=== PATIENT | male | born 2000 | race Caucasian/White ===

== ENCOUNTER 2025-04-03 12:05 | Emergency (ER) | payer SELFPAY ==
[~2025-04-03] VITALS: Ht 162.6 cm; Wt 73.0 kg
[2025-04-03 12:09] VITALS: O2SAT 98
[2025-04-03 12:35] LABS: BASOPHILS % 0.5 % (0.0-2.0); EOSINOPHILS % 0.2 % (0.0-5.0); HEMATOCRIT. 42.7 % (42.0-52.0); HEMOGLOBIN. 14.6 g/dL (14.0-18.0); LYMPHOCYTES % 23.0 % (20.0-50.0); MEAN PLATELET VOLUME 7.7 fl (7.4-10.4); MONOCYTES % 9.2 % (2.0-8.0); NEUTROPHILS % 67.1 % (40.0-76.0); PLATELET 297 x1000/uL (130-400); RED BLOOD CELL COUNT 4.72 mill/uL (4.7-6.1); RED CELL DISTRIBUTION WIDTH 13.6 % (11.6-14.6)
[2025-04-03 12:50] LABS: CREATININE 1.1 mg/dL (0.6-1.3); UREA NITROGEN BLOOD 8 mg/dL (9-23)
[2025-04-03 12:52] LABS: TROPONIN I HIGH SENSITIVITY < 4 ng/L (3.0-53)
[2025-04-03 13:01] LABS: PROTEIN TOTAL 8.0 g/dL (6.0-8.3)
[2025-04-03 13:02] LABS: ASPARTATE AMINOTRANSFERASE 37 IU/L (<34); BILIRUBIN DIRECT 0.4 mg/dL (<=3.0)
[2025-04-03 13:03] LABS: BILIRUBIN TOTAL 1.9 mg/dL (0.1-1.0)
[2025-04-03] MEDS: ONDANSETRON HCL 4MG/2ML INJ IV ONE (13:53)
[2025-04-03] MEDS: SODIUM CHLORIDE 0.9% 1,000 ML IV ONE (13:53)
[2025-04-03] MEDS: KETOROLAC 15MG/ML VIAL IV ONE (13:54)
[2025-04-03 14:46] VITALS: BP 137/76; PULSE 98; RESP 12; TEMP 36.9; O2SAT 98
== END 2025-04-03 14:53 | disposition home or self-care (01) ==
LOC: ER 12:05 → CANBEDREQ 14:46 → ER 14:53
DX: F14.10 Cocaine abuse, uncomplicated (principal); R00.2 Palpitations; Z79.899 Other long term (current) drug therapy
CPT/HCPCS: 99284; 96374; 71045; 96375; 80076; 80048; 83880; 83690; 83735; 85025; 85379; 84484; 36415; J1885; J2405; J7030